=== PATIENT | male | born 1975 | race Caucasian/White ===

== ENCOUNTER 2020-02-16 11:11 | Emergency (ER) | payer BC ==
[~2020-02-16] VITALS: Ht 175.3 cm; Wt 109.1 kg
[2020-02-16 11:41] VITALS: Ht 175.3 cm; Wt 109.1 kg
[2020-02-16] MEDS ORDERED: ZYLOPRIM300 MG (11:42)
[2020-02-16] MEDS ORDERED: MOBIC7.5 MG PO (11:42)
[2020-02-16] MEDS ORDERED: LISINOPRIL20 MG PO (11:42)
[2020-02-16] MEDS ORDERED: PRAVACHOL20 MG PO (11:43)
[2020-02-16] MEDS ORDERED: ADVAIR HFA [SP]12 GM INH (11:43)
[2020-02-16] MEDS ORDERED: STERAPRED DS 1010 MG PO (13:06)
[2020-02-16] MEDS ORDERED: SKELAXIN800 MG PO (13:06)
[2020-02-16 13:22] VITALS: BP 131/92
== END 2020-02-16 13:22 | disposition home or self-care (01) ==
LOC: D.ER 11:11
DX: M25.511 Pain in right shoulder (principal); M77.9 Enthesopathy, unspecified; I10 Essential (primary) hypertension; J45.909 Unspecified asthma, uncomplicated; Z72.0 Tobacco use; X50.0XXA Overexertion from strenuous movement or load, initial encounter; Y93.9 Activity, unspecified; Y92.9 Unspecified place or not applicable